=== PATIENT | male | born 1985 | race Caucasian/White ===

== ENCOUNTER 2023-08-02 07:17 | Emergency (ER) | payer OTHER ==
[~2023-08-02] VITALS: Ht 177.8 cm; Wt 104.3 kg
[2023-08-02 07:41] VITALS: BP_SYST 152; PULSE 87; RESP 18; TEMP 98.2; O2SAT 99
== END 2023-08-02 07:55 | disposition home or self-care (01) ==
LOC: SED 07:17
DX: S61.215A Laceration without foreign body of left ring finger without damage to nail, initial encounter (principal); Z79.899 Other long term (current) drug therapy; X58.XXXA Exposure to other specified factors, initial encounter; Y93.89 Activity, other specified; Y92.89 Other specified places as the place of occurrence of the external cause; Y99.8 Other external cause status
CPT/HCPCS: 99282